=== PATIENT | female | born 1945 | race Caucasian/White ===

== ENCOUNTER 2017-02-09 12:34 | Emergency (ER) | payer MEDICARE ==
[2017-02-09] MEDS ORDERED: DIPH,PERTUS(ACELL)TETVAC-LF 0.5 ML VIAL IM ONE (13:04)
--- NOTE | 2017-02-09 13:09 | ED ---
Fall HPI - General Chief Complaint: Fall Stated Complaint: Fall Time Seen by Provider: 02/09/17 12:55 Source: patient, EMS, RN notes reviewed Mode of arrival: EMS - History of Present Illness Initial Comments: Patient is a 71-year-old female presents emergency room for evaluation of fall injury. Patient states she was at a restaurant and went to go to the bathroom and her heel got caught on a raised area of the floor and she fell forward landing on both of her knees. Patient states that her right knee began to significantly bleed. Patient states that EMS was called and she was brought here. Patient does state that she is on Eliquis for A. fib. Patient denies head trauma. Patient denies any injuries besides bilateral knee pain. Patient states she has a large laceration over her right knee and bruising over her left knee. Patient denies any numbness or tingling in her toes. Patient states she's having 0 out of 10 pain in her left knee and 2 out of 10 pain in her right knee. Patient states she is not sure when her last tetanus vaccine was. - Related Data Home Medications Medication Instructions Recorded Confirmed Apixaban [Eliquis] 2.5 mg PO BID 02/09/17 02/09/17 Cholecalciferol [Vitamin D3] 1,000 unit PO DAILY 02/09/17 02/09/17 Lisinopril/Hydrochlorothiazide 1 tab PO DAILY 02/09/17 02/09/17 [Zestoretic 20-12.5 mg Tablet] Metoprolol Succinate (ER) [Toprol 25 mg PO HS 02/09/17 02/09/17 Xl] Pitavastatin Calcium [Livalo] 2 mg PO HS 02/09/17 02/09/17 Ubidecarenone [Co Q-10] 100 mg PO DAILY 02/09/17 02/09/17 Previous Rx's Medication Instructions Recorded HYDROcodone/APAP 5-325MG [[place] 1 tab PO Q6HR PRN #12 tab 02/09/17 5-325] Allergies Allergy/AdvReac Type Severity Reaction Status Date / Time adhesive tape Allergy Rash/Hives Verified 02/09/17 13:43 Sulfa (Sulfonamide Allergy Unknown Verified 02/09/17 13:43 Antibiotics) Childhood Review of Systems ROS Statement: Those systems with pertinent positive or pertinent negative responses have been documented in the HPI. ROS Other: All systems not noted in ROS Statement are negative. Past Medical History Past Medical History: Atrial Fibrillation, Hyperlipidemia, Hypertension History of Any Multi-Drug Resistant Organisms: None Reported Past Surgical History: Appendectomy, Back Surgery, Hysterectomy, Tonsillectomy Additional Past Surgical History / Comment(s): Past Psychological History: No Psychological Hx Reported Smoking Status: Never smoker Past Alcohol Use History: Rare Past Drug Use History: None Reported General Exam - General Exam Comments Initial Comments: Laying in exam room, no acute distress. Limitations: no limitations General appearance: alert, in no apparent distress Head exam: Present: atraumatic, normocephalic, normal inspection Eye exam: Present: normal appearance, PERRL, EOMI Pupils: Present: normal accommodation ENT exam: Present: normal exam Neck exam: Present: normal inspection Respiratory exam: Present: normal lung sounds bilaterally. Absent: respiratory distress Cardiovascular Exam: Present: regular rate, normal rhythm, normal heart sounds Right Knee exam: Present: full ROM, tenderness, laceration (5 cm horizontal laceration over the anterior knee). Absent: normal inspection Foot/Toe exam: Present: normal inspection Neurovascular tendon exam: Present: no vascular compromise. Absent: pulse deficit (2+ dorsal pedal and posterior tibial pulses), abnormal cap refill ( Capillary refill less than 2 seconds) Left Knee exam: Present: full ROM, tenderness (Slight tenderness on palpating over her anterior knee with slight ecchymosis). Absent: normal inspection Lower Leg exam: Present: normal inspection Ankle exam: Present: normal inspection Foot/Toe exam: Present: normal inspection Neurovascular tendon exam: Present: no vascular compromise. Absent: pulse deficit (2+ dorsal pedal and posterior tibial pulses), abnormal cap refill ( Capillary refill less than 2 seconds) Back exam: Present: normal inspection Neurological exam: Present: alert, oriented X3, CN II-XII intact Psychiatric exam: Present: normal affect, normal mood Skin exam: Present: warm, dry, normal color. Absent: rash Course Vital Signs 02/09/17 02/09/17 02/09/17 12:44 13:49 15:08 Temperature 97.8 F 97.6 F Pulse Rate 67 66 60 Respiratory 16 18 18 Rate Blood Pressure 140/74 132/66 136/71 O2 Sat by Pulse 100 99 99 Oximetry Procedures - Laceration Laceration #1 Consent Obtained: verbal consent Indication: laceration Site: other (right knee) Size (cm): 12 Description: linear Depth: simple, single layer Anesthetic Used: lidocaine 1% Anesthesia Technique: local infiltration Amount (mls): 10 Pre-repair: wound explored, irrigated extensively Type of Sutures: nylon (16), vicryl (1) Size of Sutures: 3-0 (nylon), 5-0 (vicryl) Number of Sutures: 17 Technique: simple, interrupted Patient Tolerated Procedure: well, no complications Medical Decision Making - Medical Decision Making Patient is a 71-year-old female presents emergency room for evaluation of fall injury. Patient has no head trauma. Patient did have a large laceration over her right knee. Laceration repaired with sutures. Patient updated on her tetanus vaccine. Bilateral knee x-ray show evidence for arthritis but shows no acute effusions or fractures. Patient's right knee was placed in a knee immobilizer to limit movement of the knee because of where the suture area is. Patient advised to follow-up with claims specialist. Patient states she sees an claims specialist at [facility]. Patient states she understands everything that was discussed with her. Return parameters discussed. Case discussed with Dr. Sun. - Radiology Data Radiology results: report reviewed, image reviewed Disposition Clinical Impression: Fall, Laceration of right knee, Contusion of right knee, Contusion of left knee Disposition: HOME SELF-CARE Condition: Good Instructions: Care For Your Stitches (ED), Laceration (ED), Fall Prevention for Older Adults (ED) Additional Instructions: Ice on and off for 10-15 minutes for the next 24-48 hours. Take [place] as needed for severe pain. Keep suture area clean and dry. Clean suture area with a damp cloth. Please return in 12-14 days for suture removal. Please follow-up with claims specialist in 24-48 hours. If new symptoms develop or symptoms worsen, please return to the ER. Prescriptions: HYDROcodone/APAP 5-325MG [[place] 5-325] 1 tab PO Q6HR PRN #12 tab PRN Reason: Pain Referrals: Virgie Johnson DO [Primary Care Provider] - 1-2 days Time of Disposition: 14:30
[2017-02-09] MEDS ORDERED: HYDROcodone/APAP 5-325MG 1 EACH TAB PO STA (13:43)
[2017-02-09 13:51] VITALS: RESP 18
--- NOTE | 2017-02-09 14:25 | XR ---
EXAMINATION TYPE: XR knee complete bilateral DATE OF EXAM: 02/09/2017 1:24 PM COMPARISON: NONE HISTORY: Fell today and knee pain TECHNIQUE: 6 views FINDINGS: There is severe narrowing of the medial joint spaces of both knees. There is moderate bilat eral patellofemoral femoral joint spur formation. There is sclerosis in the subchondral medial femora l condyle of the left knee. There is more spurring on the right patella. I see no fracture line. IMPRESSION: There is moderately severe osteoarthritis in both knees especially the medial joint space s. There is evidence of chronic avascular necrosis in the medial femoral condyle left knee. No acute fracture seen. Bilateral varicose veins are noted.
[2017-02-09 15:10] VITALS: BP 136/71; PULSE 60; TEMP 97.6
== END 2017-02-09 15:11 | disposition home or self-care (01) ==
LOC: EC 12:34
DX: S81.011A Laceration without foreign body, right knee, initial encounter (principal); S80.02XA Contusion of left knee, initial encounter; M17.0 Bilateral primary osteoarthritis of knee; I10 Essential (primary) hypertension; E78.5 Hyperlipidemia, unspecified; I48.91 Unspecified atrial fibrillation; Z79.01 Long term (current) use of anticoagulants; Z79.899 Other long term (current) drug therapy; Z88.2 Allergy status to sulfonamides; Z91.09 Other allergy status, other than to drugs and biological substances; Z23 Encounter for immunization; W18.09XA Striking against other object with subsequent fall, initial encounter; Y92.511 Restaurant or cafe as the place of occurrence of the external cause
CPT/HCPCS: 73562; 90715; 99284; 12004; 90471; L1830

== ENCOUNTER 2017-02-23 11:24 | Emergency (ER) | payer MEDICARE ==
[2017-02-23 11:31] VITALS: BP 144/71; PULSE 58; RESP 20; TEMP 98
--- NOTE | 2017-02-23 11:57 | ED ---
Wound/Laceration HPI - General Chief Complaint: Wound/Laceration Stated Complaint: infection Time Seen by Provider: 02/23/17 11:28 Source: patient, RN notes reviewed Mode of arrival: ambulatory Limitations: no limitations - History of Present Illness Initial Comments: 71-year-old female presents to the emergency Department chief complaint of concern about sutures to right knee. Patient has had the sutures in about 2 weeks. She is Covered with Vaseline. Patient states that she has noticed some drainage from the area so she was concerned. Patient denies any fevers chills or streaking tibia. Patient has been able to ambulate. Patient states it is tender to touch and she has noticed some mild swelling.Patient denies any recent fever, chills, shortness of breath, chest pain, back pain, abdominal pain , nausea vomiting, numbness or tingling, dysuria or hematuria, constipation or diarrhea, headaches or visual changes, or any other current symptoms. - Related Data Home Medications Medication Instructions Recorded Confirmed Apixaban [Eliquis] 2.5 mg PO BID 02/09/17 02/09/17 Cholecalciferol [Vitamin D3] 1,000 unit PO DAILY 02/09/17 02/09/17 Lisinopril/Hydrochlorothiazide 1 tab PO DAILY 02/09/17 02/09/17 [Zestoretic 20-12.5 mg Tablet] Metoprolol Succinate (ER) [Toprol 25 mg PO HS 02/09/17 02/09/17 Xl] Pitavastatin Calcium [Livalo] 2 mg PO HS 02/09/17 02/09/17 Ubidecarenone [Co Q-10] 100 mg PO DAILY 02/09/17 02/09/17 Previous Rx's Medication Instructions Recorded HYDROcodone/APAP 5-325MG [[place] 1 tab PO Q6HR PRN #12 tab 02/09/17 5-325] Cephalexin [Keflex] 500 mg PO Q6HR #40 cap 02/23/17 Allergies Allergy/AdvReac Type Severity Reaction Status Date / Time adhesive tape Allergy Rash/Hives Verified 02/23/17 11:30 Sulfa (Sulfonamide Allergy Unknown Verified 02/23/17 11:30 Antibiotics) Childhood Review of Systems ROS Statement: Those systems with pertinent positive or pertinent negative responses have been documented in the HPI. ROS Other: All systems not noted in ROS Statement are negative. Past Medical History Past Medical History: Atrial Fibrillation, Hyperlipidemia, Hypertension History of Any Multi-Drug Resistant Organisms: None Reported Past Surgical History: Appendectomy, Back Surgery, Hysterectomy, Tonsillectomy Additional Past Surgical History / Comment(s): Past Psychological History: No Psychological Hx Reported Smoking Status: Never smoker Past Alcohol Use History: Rare Past Drug Use History: None Reported General Exam - General Exam Comments Initial Comments: General: The patient is awake and alert, in no distress, and does not appear acutely ill. Neck: The neck is supple, there is no tenderness . Cardiovascular: There is a regular rate and rhythm. No murmur, rub or gallop is appreciated. Respiratory: Lungs are clear to auscultation, respirations are non-labored, breath sounds are equal. No wheezes, stridor, rales, or rhonchi. Musculoskeletal: Sensation intact with 2+ pulses throughout the right lower extremity. Full Range of motion of right ankle and right knee. Patient does appear to have minimal drainage with some associated pink around the area. There is some swelling noted. Concern for infection versus normal healing. Neurological: CN II-XII intact, There are no obvious motor or sensory deficits. Coordination appears grossly intact. Speech is normal. Skin: Skin is warm and dry and no rashes or lesions are noted. Psychiatric: Normal mood and affect. Limitations: no limitations Course Vital Signs 02/23/17 11:29 Temperature 98.0 F Pulse Rate 58 L Respiratory 20 Rate Blood Pressure 144/71 O2 Sat by Pulse 98 Oximetry Medical Decision Making - Medical Decision Making 71-year-old female presents for concern about infection to right knee stitches. The symptoms do not suggest due to concern for dehiscence. There is questionable infection versus normal healing. This and will start patient on Keflex for precaution. We discussed follow-up and return parameters. We discussed all questions. Mother stated that she understood and the patient is a current plan. All questions have been answered. They will be discharged. Disposition Clinical Impression: Laceration of knee, right, Infected laceration Disposition: HOME SELF-CARE Condition: Stable Instructions: Laceration (ED), Care For Your Stitches (ED) Additional Instructions: Please use medication as discussed. Please follow up with family doctor if symptoms have not improved over the next two days. Please return to the emergency room if your symptoms increase or worsen or for any other concerns. Please use the antibiotics as prescribed. Please keep the area opened to air. Return to in 2 days for reevaluation. If she noticed increasing redness and swelling please return sooner. Prescriptions: Cephalexin [Keflex] 500 mg PO Q6HR #40 cap Referrals: Virgie Johnson DO [Primary Care Provider] - 1-2 days Time of Disposition: 11:57
== END 2017-02-23 12:03 | disposition home or self-care (01) ==
LOC: EC 11:24
DX: S81.011D Laceration without foreign body, right knee, subsequent encounter (principal); I48.91 Unspecified atrial fibrillation; I10 Essential (primary) hypertension; E78.5 Hyperlipidemia, unspecified; Z79.01 Long term (current) use of anticoagulants; Z79.899 Other long term (current) drug therapy; Z88.2 Allergy status to sulfonamides; Z91.048 Other nonmedicinal substance allergy status
CPT/HCPCS: 99282

== ENCOUNTER 2017-03-02 13:49 | Emergency (ER) | payer MEDICARE ==
[2017-03-02 14:09] VITALS: RESP 18
--- NOTE | 2017-03-02 14:33 | ED ---
General Adult HPI - General Chief complaint: Recheck/Abnormal Lab/Rx Stated complaint: wound/knee Time Seen by Provider: 03/02/17 14:15 Source: patient, family, RN notes reviewed, old records reviewed Mode of arrival: ambulatory Limitations: no limitations - Related Data Home Medications Medication Instructions Recorded Confirmed Apixaban [Eliquis] 2.5 mg PO BID 02/09/17 03/02/17 Cholecalciferol [Vitamin D3] 1,000 unit PO DAILY 02/09/17 03/02/17 Lisinopril/Hydrochlorothiazide 1 tab PO DAILY 02/09/17 03/02/17 [Zestoretic 20-12.5 mg Tablet] Metoprolol Succinate (ER) [Toprol 25 mg PO HS 02/09/17 03/02/17 Xl] Pitavastatin Calcium [Livalo] 2 mg PO HS 02/09/17 03/02/17 Ubidecarenone [Co Q-10] 100 mg PO DAILY 02/09/17 03/02/17 Previous Rx's Medication Instructions Recorded HYDROcodone/APAP 5-325MG [[place] 1 tab PO Q6HR PRN #12 tab 02/09/17 5-325] Cephalexin [Keflex] 500 mg PO Q6HR #40 cap 02/23/17 Mupirocin 2% Oint [Bactroban 2% 1 applic TOPICAL TID #22 gm 03/02/17 Oint] Allergies Allergy/AdvReac Type Severity Reaction Status Date / Time adhesive tape Allergy Rash/Hives Verified 03/02/17 14:16 Sulfa (Sulfonamide Allergy Unknown Verified 03/02/17 14:16 Antibiotics) Childhood Review of Systems ROS Statement: Those systems with pertinent positive or pertinent negative responses have been documented in the HPI. ROS Other: All systems not noted in ROS Statement are negative. Past Medical History Past Medical History: Atrial Fibrillation, Hyperlipidemia, Hypertension History of Any Multi-Drug Resistant Organisms: None Reported Past Surgical History: Appendectomy, Back Surgery, Hysterectomy, Tonsillectomy Additional Past Surgical History / Comment(s): Past Psychological History: No Psychological Hx Reported Smoking Status: Never smoker Past Alcohol Use History: Rare Past Drug Use History: None Reported General Exam - General Exam Comments Initial Comments: vital signs temp 97.8 pulse 66 respiratory rate 18 pulse ox 97% room air blood pressure 147/72 pertinent to the patient's visit, patient's here for removal of several sutures. These have been left because of the extensive size of the wound and prevent it from opening , one half of the sutures were removed last week.the patient has been keeping the wound covered with a plastic bandage. It was cleaned well culture was taken. Granulation tissue is starting to the medial aspect of the wound. The thickness of the skin was too thin to survive and desiccated. Cleaned well Betadine. Rinsed well. Bactroban applied. No localized cellulitis. No evidence of fluctuance or abscess. Patient was able to bend her knee to approximately 45. Neurovascular status of foot is intact. Patient will be given a prescription for Bactroban to be applied 3 times daily. Advised to wash wound well with soap and water twice day pack dry clot air dry when sitting at home inside the coverage otherwise. If discomfort persists if there is any evidence of infection to return emergency room or see her family physician. Limitations: no limitations Course Vital Signs 03/02/17 13:49 Temperature 97.8 F Pulse Rate 66 Respiratory 18 Rate Blood Pressure 147/72 O2 Sat by Pulse 97 Oximetry Medical Decision Making - Medical Decision Making clean twice daily. Apply Bactroban ointment as directed. Allowed to air dry when sitting and home. Report signs of infection to family doctor or the emergency room. Disposition Clinical Impression: Encounter for wound re-check, Fall, Laceration of right knee Disposition: HOME SELF-CARE Condition: Fair Instructions: Acute Wound Care (ED) Additional Instructions: Wash twice daily with soap and rinsed with water. Apply Bactroban 3 times daily. Allow to air dry as often as possible when at home. Keep leg elevated. Gently flex and extend at the knee. Report any changes to her family doctor or return emergency room as needed Prescriptions: Mupirocin 2% Oint [Bactroban 2% Oint] 1 applic TOPICAL TID #22 gm Referrals: Virgie Johnson DO [Primary Care Provider] - 1-2 days Time of Disposition: 14:42
[2017-03-02 15:07] VITALS: BP 150/65; PULSE 55; TEMP 97.9
[2017-03-02] MEDS ORDERED: MUPIROCIN 2% OINT 22 GM TUBE TOPICAL SCH (16:00)
== END 2017-03-02 15:07 | disposition home or self-care (01) ==
LOC: EC 13:49
DX: S81.011D Laceration without foreign body, right knee, subsequent encounter (principal); E78.5 Hyperlipidemia, unspecified; I10 Essential (primary) hypertension; Z91.048 Other nonmedicinal substance allergy status; Z88.2 Allergy status to sulfonamides; Z79.02 Long term (current) use of antithrombotics/antiplatelets; Z79.899 Other long term (current) drug therapy
CPT/HCPCS: 87070; 87205; 99283

== ENCOUNTER 2018-01-09 17:45 | Emergency (ER) | payer MEDICARE ==
[2018-01-09 18:09] VITALS: TEMP 98.3
--- NOTE | 2018-01-09 19:39 | XR ---
PROCEDURE: XR knee bilateral, total 8 views DATE AND TIME: 01/09/2018 6:58 PM REFERRING PHYSICIAN: Gibson Ramírez CLINICAL INDICATION: PH[facility], Pain TECHNIQUE: Department protocol. COMPARISON: 02/09/2017 FINDINGS: RIGHT KNEE: 4 views were obtained. There is no fracture or malalignment. Marked medial and anterior c ompartmental osteoarthritis changes noted. The soft tissues show prominent diffuse varicosities. LEFT KNEE: 4 views were obtained. There is no fracture or malalignment. Marked medial and anterior co mpartmental osteoarthritis changes noted. The soft tissues show prominent diffuse varicosities. IMPRESSION: NO ACUTE PROCESS.
--- NOTE | 2018-01-09 19:41 | XR ---
PROCEDURE: XR Hip Bilateral Complete, 4V DATE AND TIME: 01/09/2018 6:58 PM REFERRING PHYSICIAN: Gibson Ramírez CLINICAL INDICATION: PHH, Pain TECHNIQUE: Department protocol. COMPARISON: None FINDINGS: Right hip: The right hip prosthesis is intact. No periprosthesis lucency. There is no fracture or mal alignment. The soft tissues are unremarkable. Left hip: The left hip prosthesis is intact. No periprosthesis lucencyThere is no fracture or malalig nment. The soft tissues are unremarkable. IMPRESSION: NO ACUTE PROCESS.
--- NOTE | 2018-01-09 19:43 | ED ---
General Adult HPI - General Chief complaint: Fall Stated complaint: Fall-Knee Lac Time Seen by Provider: 01/09/18 18:14 Source: patient, family, RN notes reviewed Mode of arrival: ambulatory Limitations: no limitations - History of Present Illness Initial comments: 72-year-old female presents to the emergency department for chief complaint of laceration to the right chang x 1 hour ago. Patient states she was walking and is Marcus and steady but the wind knocked her over. Patient fell onto her hands and knees and rolled onto her right side. Patient denies any pain in the hands or wrists. Patient does complain of pain in the right knee and the right hip. No pain in the left knee with patient requests to have it x-rayed since she fell on it. Patient states she had a right hip surgery about a month ago. Patient states the area is draining clear fluid since the fall. She states it was not draining before hand. Patient states the last time she had a laceration repaired part of it did not heal and she developed an infection. Patient states she would like an antibiotic. Patient denies hitting her head or loss of consciousness. Patient denies any neck or back pain. Patient denies any other complaints at this time including shortness of breath, chest pain, abdominal pain, nausea or vomiting, headache, or visual changes. - Related Data Home Medications Medication Instructions Recorded Confirmed Apixaban [Eliquis] 2.5 mg PO BID 02/09/17 03/02/17 Cholecalciferol [Vitamin D3] 1,000 unit PO DAILY 02/09/17 03/02/17 Lisinopril/Hydrochlorothiazide 1 tab PO DAILY 02/09/17 03/02/17 [Zestoretic 20-12.5 mg Tablet] Metoprolol Succinate (ER) [Toprol 25 mg PO HS 02/09/17 03/02/17 Xl] Pitavastatin Calcium [Livalo] 2 mg PO HS 02/09/17 03/02/17 Ubidecarenone [Co Q-10] 100 mg PO DAILY 02/09/17 03/02/17 Previous Rx's Medication Instructions Recorded HYDROcodone/APAP 5-325MG [[place] 1 tab PO Q6HR PRN #12 tab 02/09/17 5-325] Mupirocin 2% Oint [Bactroban 2% 1 applic TOPICAL TID #22 gm 03/02/17 Oint] Cephalexin [Keflex] 500 mg PO Q12HR #20 cap 01/09/18 Allergies Allergy/AdvReac Type Severity Reaction Status Date / Time adhesive tape Allergy Rash/Hives Verified 01/09/18 18:09 Sulfa (Sulfonamide Allergy Unknown Verified 01/09/18 18:09 Antibiotics) Childhood Review of Systems ROS Statement: Those systems with pertinent positive or pertinent negative responses have been documented in the HPI. ROS Other: All systems not noted in ROS Statement are negative. Past Medical History Past Medical History: Atrial Fibrillation, Hyperlipidemia, Hypertension History of Any Multi-Drug Resistant Organisms: None Reported Past Surgical History: Appendectomy, Back Surgery, Hysterectomy, Orthopedic Surgery, Tonsillectomy Additional Past Surgical History / Comment(s): bilateral hip replacement Past Psychological History: No Psychological Hx Reported Smoking Status: Never smoker Past Alcohol Use History: Rare Past Drug Use History: None Reported General Exam Limitations: no limitations General appearance: alert, in no apparent distress Head exam: Present: atraumatic, normocephalic, normal inspection Neck exam: Present: normal inspection, full ROM. Absent: tenderness, meningismus, lymphadenopathy Respiratory exam: Present: normal lung sounds bilaterally. Absent: respiratory distress, wheezes, rales, rhonchi, stridor Cardiovascular Exam: Present: regular rate, normal rhythm, normal heart sounds. Absent: systolic murmur, diastolic murmur, rubs, gallop, clicks Extremities exam: Present: full ROM (Full range of motion of the right knee and right hip. Patient is able to walk on them.), tenderness (Tenderness to the chang below the right knee where the laceration is. No tenderness on bilateral kneecaps. No tenderness in bilateral hips.), normal capillary refill (Refill less than 2 seconds. Pedal pulse 2+ in the right lower extremity.), other (8 cm laceration on the right knee in a V-shape). Absent: calf tenderness (No tenderness in the calf) Back exam: Present: normal inspection, full ROM. Absent: tenderness Neurological exam: Present: alert, oriented X3, CN II-XII intact Course Vital Signs 01/09/18 18:05 Temperature 98.3 F Pulse Rate 82 Respiratory 18 Rate Blood Pressure 177/83 O2 Sat by Pulse 97 Oximetry Procedures - Procedures Initial comment: Body area: proximal right anterior chang Laceration length: 8 cm Foreign bodies: no foreign bodies Tendon involvement: none Nerve involvement: none Vascular damage: no Anesthesia: local infiltration Local anesthetic: 15 mL 1% lidocaine Preparation: Patient was prepped and draped in the usual sterile fashion. Irrigation solution: saline Irrigation method:saline jet lavage , also cleaned with iodine Skin closure:4-0 Ethilon using sterile technique Number of sutures: 16 Technique: interupted Dressing: antibiotic ointment/ gauze Patient tolerance: Patient tolerated the procedure well with no immediate complications. Medical Decision Making - Medical Decision Making 72-year-old female since to the emergency department for chief complaint of laceration to the right knee. Patient had hip surgery over a month ago. X- rays obtained of the bilateral knees and hips showed no acute fractures or abnormalities. Patient is walking in the emergency department without difficulty. There is an 8 cm laceration to the anterior right chang. It is in a V shape. 16 sutures were applied. Patient has full range of motion of the right ankle and foot. Neurovascular intact. Sensation intact. Patient was warned to watch for inadequate healing due to this shape of the laceration. She is to return to the emergency Department if she notices any signs of infections or if it is not healing. Patient requests Keflex because she got a bad infection last time. Patient is up-to-date on her tetanus. Patient has no other complaints at this time. Patient will be discharged home with close follow-up with primary care in 1-2 days and return to the emergency department in about 10 days to have sutures removed. Disposition Clinical Impression: Laceration Disposition: HOME SELF-CARE Condition: Good Instructions: Laceration (ED), Care For Your Stitches (ED) Additional Instructions: Please apply bacitracin and keep the wound covered for the next couple days. After that you may leave it open to air. Please monitor for signs of infection or if it is not healing and return if he notices any of these. Follow up with primary care in 1-2 days. Return in 10 days to have sutures removed. Prescriptions: Cephalexin [Keflex] 500 mg PO Q12HR #20 cap Is patient prescribed a controlled substance at d/c from ED?: No Referrals: Virgie Johnson DO [Primary Care Provider] - 1-2 days Time of Disposition: 20:46
[2018-01-09 20:49] VITALS: BP 133/63; PULSE 83; RESP 20
== END 2018-01-09 20:56 | disposition home or self-care (01) ==
LOC: EC 17:45
DX: S81.011A Laceration without foreign body, right knee, initial encounter (principal); I48.91 Unspecified atrial fibrillation; E78.5 Hyperlipidemia, unspecified; I10 Essential (primary) hypertension; Z96.643 Presence of artificial hip joint, bilateral; Z88.2 Allergy status to sulfonamides; Z91.048 Other nonmedicinal substance allergy status; Z79.01 Long term (current) use of anticoagulants; Z79.899 Other long term (current) drug therapy
CPT/HCPCS: 12004; 73521; 99283